=== PATIENT | male | born 2000 | race Caucasian/White ===

== ENCOUNTER → 2024-07-14 13:56 | Outpatient (REF) | payer OTHER, SELFPAY | LOC: RAD 13:56 | PROVIDERS: ATTENDING PHYSICIAN Surgery Vascular Surgery | DX: I87.2 Venous insufficiency (chronic) (peripheral) (principal); I83.892 Varicose veins of left lower extremity with other complications | CPT/HCPCS: 93971 ==

== ENCOUNTER → 2025-10-19 08:47 | Outpatient (REF) | payer OTHER, SELFPAY | LOC: DHVS 08:47 | PROVIDERS: ATTENDING PHYSICIAN Surgery Vascular Surgery | DX: I87.2 Venous insufficiency (chronic) (peripheral) (principal) | CPT/HCPCS: 93971 ==

== ENCOUNTER 2025-11-11 10:14 | Day surgery (SDC) | payer OTHER, SELFPAY ==
[2025-11-11] VITALS (12 sets, daily range): BP systolic 100–119; BP diastolic 58–76; BMI 22.4
[2025-11-11] MEDS: NSS 500 IV (11:10)
[2025-11-11 11:36] LABS: Blood Urea Nitrogen 21 mg/dl (9-20); Calcium 9.1 mg/dl (8.4-10.2); Carbon Dioxide 25 mmol/L (22-30); Chloride 105 mmol/L (98-107); Estimated Creatinine Clearance 122 ml/min; Glucose 89 mg/dl (70-99); Potassium 4.3 mmol/L (3.5-5.1); Sodium 136 mmol/L (135-145); eGFR > 60.00
[2025-11-11] MEDS: BACTROBAN NASAL 1 GRAM NASAL (11:37)
[2025-11-11 11:43] LABS: Hematocrit 41.4 % (39.0-52.0); Hemoglobin 14.8 g/dL (13.0-18.0); Mean Corp Hgb Conc. 35.7 g/dL (33.0-37.0); Mean Corpuscular Volume 83.1 fL (80.0-94.0); Platelet Count 169 10^3/uL (130-400); Red Cell Dist. Width 12.3 % (11.5-14.5)
[2025-11-11 11:47] LABS: APTT 26.7 Sec (23.4-35.0); INR 1.04; PT 13.7 Sec (11.4-14.6)
[2025-11-11] MEDS: PERIDEX 0.12% ORAL RINSE 15 ML PO (11:48)
[2025-11-11] MEDS: TYLENOL 1000 MG PO (12:33)
--- NOTE | 2025-11-11 13:15 | W.SUR.PREOP ---
Pre-Operative Surgical Note
-
I have examined this patient prior to the performance of the scheduled procedure.
The patient's condition is unchanged from the time of the current History and
Physical and the patient is able to undergo the scheduled procedure.
--- NOTE | 2025-11-11 15:36 | OR.RPT ---
Operative Report
Operative Report
Date of Operation: 11/11/2025
Pre Op Diagnosis:
1. Recurrent small saphenous vein insufficiency, left lower extremity
2. Large symptomatic varicosities left calf
Post Op Diagnosis:
1. Recurrent small saphenous vein insufficiency, left lower extremity
2. Large symptomatic varicosities left calf
Procedure:
1. Ligation and division of left small saphenous vein near the saphenous popliteal junction
2. Stab phlebectomy left lower extremity varicosities (17 total stab incisions)
Surgeon: Anibal Hammer III, MD
Cross Tie Tram Loader: Sara Dunlap MD PGY-6
Anesthesia: General
Complications: None
Estimated Blood Loss: 25 cc
History and Indications for Procedure: 25-year-old male with prior endovenous ablation of his left small saphenous vein. He had recurrence of reflux and developed large symptomatic varicosities over his left calf, distal thigh and lateral knee. I
brought him to the operating room for ligation and division of the small saphenous vein as well as stab phlebectomy of multiple symptomatic varicosities. The varicosities were marked in the preoperative holding area.
Procedure in Detail: Anthony Maynard was correctly identified and positioned prone on the operating table. After adequate induction of anesthesia his small saphenous vein and the sapheno-popliteal junction was identified under ultrasound guidance and
marked at the skin level. The varicosities had been previously marked in the preoperative holding area. The left leg was then prepped and draped in usual sterile fashion. He received preoperative antibiotics. A time out procedure was performed
with the nursing and anesthesia staff confirming the patient's identity as well as the nature and laterality of the procedure.
An incision was made over the proximal calf at the previously placed skin karen. Electrocautery and sharp dissection were used to expose the small saphenous vein. The small saphenous vein was then circumferentially dissected. The vein was then
doubly ligated proximally and distally with silk ties. The intervening segment was transected and removed. Hemostasis was achieved. We then proceeded with stab phlebectomies over the symptomatic varicosities which were marked. Stab incisions
were made segmentally over the marked varicosities over the distal thigh, lateral knee and calf with an ophthalmic blade. Smaller varicosities were hooked and then avulsed from the wounds. The larger varicosities were pulled up above the skin with a
right angle and hemostat and then ligated and divided between silk ties before pulling them out from underneath/between the stab incisions. Hemostasis was achieved under all stab incisions with gentle pressure. The wounds were all irrigated with
saline solution. The stab incisions were closed with interrupted 4-0 Monocryl suture. The larger incision over the small saphenous vein was closed in layers with 3-0 Vicryl followed by 4-0 Monocryl. Skin glue was applied to all incisions. 17
total stab incisions were made.
The patient's leg was wrapped in an Jhonatan wrap from the toes to the thigh. He tolerated the procedure well and was taken to the recovery room in good condition.
Attestation: I was present and responsible for the entire procedure
Signed:
Anibal Hammer III, MD
Vascular Surgery
[facility]
[2025-11-11] MEDS: TORADOL 15 MG IV (16:39)
--- NOTE | 2025-11-11 17:25 | PTCARENOTE ---
Assumed care of patient. Awaiting discharge orders from COMPUTER ARCHITECT.
== END 2025-11-11 17:27 | disposition home or self-care (01) ==
LOC: CATH 10:14
PROVIDERS: ATTENDING PHYSICIAN Surgery Vascular Surgery
DX: I83.90 Asymptomatic varicose veins of unspecified lower extremity (principal); I87.2 Venous insufficiency (chronic) (peripheral); I49.8 Other specified cardiac arrhythmias; K21.9 Gastro-esophageal reflux disease without esophagitis; Z88.5 Allergy status to narcotic agent
CPT/HCPCS: 37780; 37765; 80048; 85027; 85610; 85730; 88304; 93005